=== PATIENT | male | born 2000 | race Caucasian/White ===

== ENCOUNTER 2023-09-28 00:30 | Emergency (ER) | payer SELFPAY ==
[2023-09-28 00:32] VITALS: BP 110/79; PULSE 63; RESP 15; TEMP 36.8; O2SAT 99; BMI 25.1
--- NOTE | 2023-09-28 00:32 | HMH.EDGENADL ---
Discharge Plan Disposition Patient Disposition: Home, Self-Care Referrals Follow up/Referrals: Provider,Referral, [Primary Care Provider] - See instructions Activity Restrictions/Add. Instructions Additional Instructions/Restrictions: Please follow-up with your primary care provider. Please return to the emergency department if you develop any new or worsening symptoms or become concerned for your health. Please take Tylenol ibuprofen as needed for pain. Keep the ankle elevated, use ice as needed. Clinical Impressions Clinical Impression: Left ankle sprain Print Language Print Language: Armenian Discharge ED Provider: Jeison Doherty General Adult HPI General Chief complaint: Extremity Injury, Lower Stated complaint: twisted L ankle, swelling Time Seen by Provider: 09/28/23 00:32 History of Present Illness HPI narrative: 22-year-old male without significant past medical history presents for left lateral ankle pain. He reports he tripped over a fence a few days ago and he has had pain since that time. He wore an ankle brace for a while but symptoms have not improved. He presents for an x-ray. Reports normal sensation. Reports he is able to ambulate. Related Data Allergies Allergy/AdvReac Type Severity Reaction Status Date / Time No Known Allergies Allergy Verified 09/28/23 00:48 [facility] Disclaimer: The information contained in this section may have been updated after the patient was seen, as this information can be updated by other users. Social History Smoking Status: Current every day smoker alcohol intake: never current occupational status: other Travel in the last 8 weeks: None ROS Obtained: Yes All systems reviewed & no additional complaints except as documented Physical Exam General General appearance: alert and in no apparent distress Head Head exam: atraumatic and normocephalic Eye Eye exam: Present normal appearance, PERRL and EOMI ENT ENT exam: Present normal oropharynx and normal external ear exam Neck Neck exam: Present normal inspection and full ROM Chest Chest inspection: Present normal inspection and symmetric chest wall rise; Absent tenderness Respiratory Respiratory exam: Present normal lung sounds bilaterally; Absent respiratory distress Cardiovascular Cardiovascular exam: Present regular rate and normal rhythm Abdominal Exam Abdominal exam: Present soft; Absent distention, tenderness or guarding Extremities Exam Extremities exam: Present other (Mild swelling of the left lateral malleolus with associated tenderness. Range of motion somewhat limited secondary to pain. No tenderness of the foot. Normal neurovascular status.) Back Exam Back exam: Present normal inspection; Absent tenderness Neurological Exam Neurological exam: Present alert and oriented X3; Absent motor sensory deficit Psychiatric Psychiatric exam: Present normal affect and normal mood Skin Skin exam: Present warm, dry and normal color Lymphatic Lymphatic Findings: no adenopathy Medical Decision Making Medical Records Medical records reviewed: Yes I reviewed the patient's medical records. Mukul Inquiry Pt receiving controlled substance: No Mukul was queried for this patient: No Vital Signs: 09/28/23 00:32 Temperature 98.3 F Temperature Source Oral Pulse Rate [Right Radial] 63 Respiratory Rate 15 Blood Pressure [Right Arm] 110/79 Blood Pressure Mean [Right Arm] 89 02 Sat by Pulse Oximetry 99 Oxygen Delivery Method Room Air Lab Data Lab results reviewed: Yes I reviewed the patient's lab results. Orders (Tests/Meds): ORDERS Category Date Time Status Ankle XR - Left minimum 3 Views [XR ankle LT min 3V] Exams 09/28/23 00:37 Taken Stat Medical Decision Narrative: 22-year-old male without significant past medical history presents for a few days of left ankle pain. History was obtained via interactive discussion with patient. On arrival, patient is [afebrile, hemodynamically stable, satting appropriately, alert, oriented x4, GCS 15], moving all extremities spontaneously. Full physical exam performed and significant for left lateral ankle tenderness and swelling, no tenderness of the foot. Differential includes but is not limited to ankle sprain, ankle fracture, dislocation. Workup initiated including radiographs of the left ankle which were independently reviewed by me and show no evidence of acute fracture or dislocation. Given patient history, exam and workup, patient's presentation most likely represents left ankle sprain. Patient given instructions regarding symptomatic care.. Procedures Risk/Benefits of Procedure(s) Were Explained: Yes Critical Care Critical Care Time Critical Care Time: No
--- NOTE | 2023-09-28 00:37 | XR_ITS ---
PROCEDURE INFORMATION: Exam: XR Left Ankle Exam date and time: 09/28/2023 12:39 AM Age: 22 years old Clinical indication: Injury or trauma; Fall; Other: Pain; Additional info: Lateral mal pain, injury TECHNIQUE: Imaging protocol: Radiologic exam of the left ankle. Views: 3 or more views. Total images: 3 COMPARISON: No relevant prior studies available. FINDINGS: Bones/joints: No acute fracture, joint dislocation, or joint effusion. Ankle mortise is maintained. No concerning bone lesions or calcifications. Unremarkable joint spaces. Soft tissues: Mild lateral soft tissue swelling. IMPRESSION: 1. No acute osseous abnormality. 2. Mild lateral soft tissue swelling.
[2023-09-28 01:16] VITALS: BP 110/79; PULSE 63; RESP 16; TEMP 36.8; O2SAT 99
== END 2023-09-28 01:02 | disposition home or self-care (01) ==
PROVIDERS: Emergency Provider Emergency Medicine
DX: S93.402A Sprain of unspecified ligament of left ankle, initial encounter (principal); M25.572 Pain in left ankle and joints of left foot; W01.10XA Fall on same level from slipping, tripping and stumbling with subsequent striking against unspecified object, initial encounter
CPT/HCPCS: 73610; 99283

== ENCOUNTER 2023-10-17 10:02 | Emergency (ER) | payer SELFPAY ==
[2023-10-17] VITALS (8 sets, daily range): BP systolic 110–123; BP diastolic 70–86; PULSE 52–67; RESP 13–19; TEMP 36.6–36.7; O2SAT 97–100; BMI 22.1
--- NOTE | 2023-10-17 10:12 | ED_ITS ---
Discharge Plan Disposition Patient Disposition: Home, Self-Care Condition: Good Prescriptions Prescriptions: New meloxicam 7.5 mg tablet 7.5 mg PO DAILY Qty: 14 0RF Referrals Follow up/Referrals: Provider,Referral, MD [Primary Care Provider] - See instructions Activity Restrictions/Add. Instructions Additional Instructions/Restrictions: I have prescribed an anti-inflammatory medication for you to use as needed for pain. As we discussed, your x-ray thankfully did not show any broken bones. I recommend you use an ankle brace such as a stirrup ankle brace as needed for comfort and to help your ankle sprain heal. Please return with any new or worsening symptoms. Clinical Impressions Clinical Impression: Left ankle sprain Stand Alone Forms Stand Alone Forms: Work/School Release Print Language Print Language: Korean Discharge ED Provider: Willem Villanueva Adult HPI General Chief complaint: PAIN Stated complaint: ankle pain Time Seen by Provider: 10/17/23 10:11 History of Present Illness HPI narrative: The patient presents with a chief complaint of persistent left ankle pain and swelling following a fall approximately one month ago. He reports tripping over a fence and landing on his left ankle, which popped five or six times. He initially went to the hospital and had an X-ray, which was interpreted as a sprain. However, the patient states that the pain has not improved and has been getting worse. He also reports feeling something sticking out underneath his ankle, which is not present on the contralateral side. The patient describes the pain as affecting his entire foot, with the main source originating from the area of reported protrusion. He reports pain on palpation of the lateral and medial aspects of the ankle, but not on the posterior aspect. The patient denies any recent injuries or activities that may have exacerbated the pain, although he mentions riding a skateboard regularly. He has not been taking any medications for pain management and reports a current pain level of 5-6 out of 10. The patient denies any other symptoms, such as fever or chills, and has no known medical conditions or daily medications. The patient recalls that during the initial injury, his ankle moved slightly inward. He reports being unable to bear weight on the affected ankle. The patient mentions that the hospital provided him with a wrap for the ankle after the initial injury. He also notes that the pain was significantly worse than usual when walking home the previous night, which prompted him to examine his ankle and notice the protrusion. Please note that above description of symptoms, in this electronic medical record under categorization of recalled from ER triage doctor by RN are reflective of an initial nursing assessment, however, is not reflective of my full history and physical exam that was personally taken and clarified. Consequentially, this preceding description of symptoms, which may include the patient's categorized chief complaint in the EMR, do not reflect my personal clinical impression, and the ultimate description of history of present illness and patient stated complaints should be deferred to this section of the note. Unless stated otherwise or congruent with this section of the note, additional signs, symptoms, or incongruence should be interpreted as inaccurate with my clinical impression. Related Data Previous Rx's ?Medication ?Instructions ?Recorded meloxicam 7.5 mg tablet 7.5 mg PO DAILY #14 tabs 10/17/23 Allergies Allergy/AdvReac Type Severity Reaction Status Date / Time No Known Allergies Allergy Verified 09/28/23 00:48 [facility] Disclaimer: The information contained in this section may have been updated after the patient was seen, as this information can be updated by other users. Social History (Updated 09/28/23 @ 00:59 by Jeison Doherty MD) Smoking Status: Current every day smoker alcohol intake: never current occupational status: other Travel in the last 8 weeks: None ROS Obtained: Yes other As per HPI Physical Exam General General appearance: alert and in no apparent distress Head Head exam: atraumatic and normocephalic Eye Eye exam: Present normal appearance Neck Neck exam: Present normal inspection Chest Chest inspection: Present normal inspection and symmetric chest wall rise Respiratory Respiratory exam: Present normal lung sounds bilaterally; Absent respiratory distress Cardiovascular Cardiovascular exam: Present regular rate and normal rhythm Abdominal Exam Abdominal exam: Present soft Neurological Exam Neurological exam: Present alert and oriented X3 Psychiatric Psychiatric exam: Present normal affect and normal mood Skin Skin exam: Present warm and dry Other Other exam information: Closed injury to left ankle, left lateral malleoli are mild tenderness to palpation. No tenderness or external evidence of injury elsewhere. Medical Decision Making Medical Records Medical records reviewed: Yes I reviewed the patient's medical records. Mukul Inquiry Pt receiving controlled substance: No Vital Signs: 10/17/23 10:02 10/17/23 10:04 10/17/23 10:30 Temperature 97.9 F Temperature Source Oral Pulse Rate 67 65 Pulse Rate [Left Radial] 63 Respiratory Rate 13 Blood Pressure 122/86 119/84 Blood Pressure [Right Arm] 122/86 Blood Pressure Mean [Right Arm] 98 02 Sat by Pulse Oximetry 100 98 99 Oxygen Delivery Method Room Air Room Air 10/17/23 11:00 10/17/23 12:00 10/17/23 12:31 Temperature Temperature Source Pulse Rate 60 52 L 58 L Pulse Rate [Left Radial] Respiratory Rate Blood Pressure 123/74 122/80 110/70 Blood Pressure [Right Arm] Blood Pressure Mean [Right Arm] 02 Sat by Pulse Oximetry 99 99 99 Oxygen Delivery Method Room Air 10/17/23 13:01 10/17/23 13:38 Temperature 98.0 F Temperature Source Pulse Rate 53 L 54 L Pulse Rate [Left Radial] Respiratory Rate 19 Blood Pressure 112/72 112/72 Blood Pressure [Right Arm] Blood Pressure Mean [Right Arm] 02 Sat by Pulse Oximetry 97 Oxygen Delivery Method Orders (Tests/Meds): ED MEDICATIONS Discontinued Medications Generic Name Dose Route Start Last Admin Trade Name Freq PRN Reason Stop Dose Admin Ketorolac Tromethamine 15 mg 10/17/23 10:19 10/17/23 10:30 Ketorolac 30mg/Ml Vial IM 10/17/23 10:20 Not Given ONCE ONE ORDERS Category Date Time Status XR ankle LT min 3V Stat Exams 10/17/23 10:19 Completed Medical Decision Narrative: Patient with history and exam per above presenting for evaluation of ankle pain Diagnoses considered include sprain, strain, fracture ED workup and treatment included: X-ray left ankle Imaging was independently visualized and interpreted by me, significant for no acute findings Please refer to radiology report for full details. My clinical impression at this time is most consistent with ankle sprain. Patient was discharged with air splint. I discussed my clinical impression with patient and answered all questions. At this time, the evidence for any other entities in the differential is insufficient to warrant any further testing or ED observation. This was explained to the patient. The patient was advised that persistent or worsening symptoms require further evaluation. Critical Care Critical Care Time Critical Care Time: No
--- NOTE | 2023-10-17 10:19 | XR_ITS ---
FINAL REPORT CLINICAL HISTORY: inversion injury 2wk ago, Lateral mal pain COMPARISON: none FINDINGS: LEFT ANKLE Three views demonstrate no acute fracture or dislocation. The visualized joint spaces are normally aligned. The soft tissues are unremarkable. IMPRESSION: No acute bony abnormality. Reviewed, Interpreted and Dictated by Ki Coyne MD Transcribed by Ksenia Mehta Authenticated and [facility]
== END 2023-10-17 13:39 | disposition home or self-care (01) ==
PROVIDERS: Emergency Provider Emergency Medicine
DX: S93.402A Sprain of unspecified ligament of left ankle, initial encounter (principal); M25.572 Pain in left ankle and joints of left foot; W19.XXXA Unspecified fall, initial encounter
CPT/HCPCS: 73610; 96372; 99283; J1885